=== PATIENT | female | born 1970 | race Caucasian/White ===

== ENCOUNTER 2018-07-24 09:27 | Emergency (ER) | payer MEDICAID, OTHER ==
[2018-07-24 09:39] VITALS: RESP 18
[2018-07-24] MEDS ORDERED: Sodium Chloride 0.9% 1,000 ML IV ONE (10:07)
[2018-07-24] MEDS ORDERED: Iohexol 240 (50 ml) PO STA (10:07)
[2018-07-24 10:26] LABS: BASO # 0.1 K/uL (0.0-0.2); BASO % 1.3 % (0.0-2.0); EOS # 0.1 K/uL (0.0-0.7); HEMOGLOBIN 15.5 g/dL (11.0-16.0); LYMPH # 1.6 K/uL (1.0-4.3); LYMPH % 21.7 % (20.0-40.0); MEAN CORPUSCULAR HEMOGLOBIN 33.1 pg (27.0-31.0); MEAN CORPUSCULAR HGB CONC 34.2 g/dL (33.0-37.0); MEAN PLATELET VOLUME 9.4 fL (7.2-11.7); MONO # 0.7 K/uL (0.0-0.8); MONO % 8.7 % (0.0-10.0); NEUT % 66.3 % (50.0-75.0); RBC 4.67 Mil/uL (3.80-5.20); RED CELL DISTRIBUTION WIDTH 13.1 % (11.5-14.5); WHITE BLOOD COUNT 7.6 K/uL (4.8-10.8)
[2018-07-24] MEDS ORDERED: Iohexol 240 (50 ml) ONE (10:30)
[2018-07-24] MEDS ORDERED: Morphine 4 MG/ML VIAL ONE ×2 (10:30→12:14)
[2018-07-24 10:33] LABS: HCG,QUALITATIVE URINE NEGATIVE (NEGATIVE)
[2018-07-24 10:38] LABS: SQUAMOUS EPITHIAL 3 /hpf (0-5); URINE BACTERIA RARE (<OCC); URINE BILIRUBIN NEGATIVE (NEGATIVE); URINE BLOOD NEGATIVE (NEGATIVE); URINE CLARITY Clear (Clear); URINE COLOR Yellow (YELLOW); URINE GLUCOSE (UA) NORMAL (Normal); URINE LEUKOCYTE ESTERASE NEG Leu/uL (Negative); URINE PROTEIN NEGATIVE (NEGATIVE); URINE UROBILINOGEN NORMAL mg/dL (0.2-1.0)
[2018-07-24 10:51] LABS: ALB/GLOB RATIO 1.6 (1.0-2.1); ALBUMIN 4.6 g/dL (3.5-5.0); AMYLASE 69 U/L (30-110); BLOOD UREA NITROGEN 14 mg/dL (7-17); CALCIUM 9.1 mg/dl (8.6-10.4); GFR NON-AFRICAN AMERICAN > 60; LIPASE 202 U/L (23-300)
[2018-07-24 10:53] LABS: ALT/SGPT 18 U/L (9-52); AST/SGOT 23 U/L (14-36)
[2018-07-24] MEDS ORDERED: Iohexol 300 100 ML IJ ONE (11:03)
--- NOTE | 2018-07-24 11:10 | C.PDOC ---
History Of Present Illness 47 years old female with Hx of gastric bypass and hernia repair, presents to ED for complaints of abdominal distention and pain that began 5 days ago. Patient states pain worsened today which prompted the ED visit. Denies nausea, vomiting, diarrhea, bloody stools, dysuria, or any other complaints. Patient reports similar symptoms 3 years ago and "it was something that had to do with the pancreas." Patient reports she drinks beer but denies any drug use. Patient also reports she took Tylenol for pain with no relief. Time Seen by Provider: 07/24/18 09:51 Chief Complaint (Nursing): Abdominal Pain History Per: Patient History/Exam Limitations: no limitations Onset/Duration Of Symptoms: Hrs Current Symptoms Are (Timing): Still Present Location Of Pain/Discomfort: Diffuse Radiation Of Pain To:: None Quality Of Discomfort: "Pain" Associated Symptoms: denies: Fever, Chills, Nausea, Vomiting, Diarrhea Exacerbating Factors: None Alleviating Factors: None Last Bowel Movement: Today Recent travel outside of the [place]: No Abnormal Vaginal Bleeding: No Last Menstral Period: Menopause Past Medical History Reviewed: Historical Data, Nursing Documentation, Vital Signs Vital Signs: Last Vital Signs Temp 98.3 F 07/24/18 09:36 Pulse 71 07/24/18 09:36 Resp 18 07/24/18 09:36 BP 127/81 07/24/18 10:31 Pulse Ox 99 07/24/18 09:36 - Medical History PMH: Anemia Surgical History: Cholecystectomy - [facility] PERCUTANEOUS ABDOMINAL DRAINAGE (03/24/13) Family History: States: No Known Family Hx - Social History Hx Tobacco Use: No Hx Alcohol Use: Yes Hx Substance Use: No - Immunization History Hx Tetanus Toxoid Vaccination: No Hx Influenza Vaccination: No Hx Pneumococcal Vaccination: No Review Of Systems Constitutional: Negative for: Fever, Chills Gastrointestinal: Positive for: Abdominal Pain. Negative for: Nausea, Vomiting, Diarrhea, Constipation Genitourinary: Negative for: Dysuria Skin: Negative for: Rash Neurological: Negative for: Weakness, Numbness Physical Exam - Physical Exam Appears: Non-toxic, No Acute Distress, Other (Uncomfortable ) Skin: Normal Color, Warm, Dry, No Rash Head: Atraumatic, Normacephalic Eye(s): bilateral: Normal Inspection, PERRL, EOMI Oral Mucosa: Moist Neck: Normal ROM, Supple Chest: Symmetrical, No Tenderness Cardiovascular: Rhythm Regular Respiratory: Normal Breath Sounds, No Rales, No Rhonchi, No Wheezing Gastrointestinal/Abdominal: Bowel Sounds, Soft, Tenderness (Epigastric area ), No Mass, No Distention, Other (Obese ) Extremity: Bilateral: Atraumatic, Normal Color And Temperature, Normal ROM Pulses: Left Radial: Normal, Right Radial: Normal Neurological/Psych: Oriented x3, Normal Speech ED Course And Treatment - Laboratory Results Result Diagrams: 07/24/18 10:23 07/24/18 10:23 O2 Sat by Pulse Oximetry: 99 (RA) Pulse Ox Interpretation: Normal - CT Scan/US Abdomen/Pelvis CT Other Rad Studies (CT/US): Read By Radiologist, Radiology Report Reviewed CT/US Interpretation: PROCEDURE: CT Abdomen and Pelvis with oral and IV contrast. HISTORY: mid abd pain and weight loss; history of gastric bypass, cholecystectomy, hernia. COMPARISON: CT abdomen and pelvis with IV contrast performed 05/18/15. TECHNIQUE: Contiguous axial images of the abdomen and pelvis. Oral and IV contrast was administered. Coronal and Sagittal reformats generated and reviewed. Contrast dose: 100 mL Omnipaque 300 IV. Radiation dose: Total exam DLP = 1124.02 mGy-cm. This CT exam was performed using one or more of the following dose reduction techniques: Automated exposure control, adjustment of the mA and/or kV according to patient size, and/or use of iterative reconstruction technique. FINDINGS: LOWER THORAX: No visible consolidation, pleural effusion, or pneumothorax. LIVER: Unremarkable. GALLBLADDER AND BILE DUCTS: Cholecystectomy. Intrahepatic and extrahepatic biliary ductal dilatation. Common bile duct measures approximately 1.4 cm diameter. PANCREAS: Unremarkable. SPLEEN: Unremarkable. ADRENALS: Unremarkable. KIDNEYS AND URETERS: The kidneys enhance symmetrically. No hydronephrosis or obstructing renal calculus. BLADDER: The urinary bladder appears unremarkable. REPRODUCTIVE: Uterus is present. APPENDIX: The appendix appears within normal limits of caliber. No secondary signs of acute appendicitis. BOWEL: The stomach is nondistended. Postoperative changes from gastric bypass. The bowel loops appear within normal limits of caliber without evidence of intestinal obstruction. PERITONEUM: No significant free fluid. No definite free air. LYMPH NODES: Sub cm mesenteric lymph nodes, nonspecific. V ASCULATURE: No aortic aneurysm. No atherosclerotic calcification or mural plaque present. BONES: No acute osseous abnormality is detected. OTHER FINDINGS: Mesh repair of an anterior abdominal wall hernia. Soft tissue thickening and small fluid collection re-identified within the anterior abdomi nal wall measuring approximately 2.1 cm x 7.5 cm x 8.4 cm (AP by transverse by cc), similar in appearance. IMPRESSION: Mesh repair with small fluid collection re-identified similar in appearance to prior study performed 05/18/15. Cholecystectomy with persistent intrahepatic and extrahepatic biliary ductal dilatation. Additional incidental findings as above. Medical Decision Making Medical Decision Making: Impression: Abdominal plan Plan: * Morphine * IV Fluids * Toradol * Pepcid * Blood work * Urinalysis * CT Abdomen/Pelvis Progress: Labs reviewed and unremarkable. CT reviewed mesh repair with small fluid collection re-identified similar in appearance to prior study performed 05/18/15. See full report. On re-evaluation the patient was resting on stretcher without fever and normal vital signs. Discussed results with her and provided copy of labs and CT report. Advise follow up with clinic and Rx given. Disposition Counseled Patient/Family Regarding: Diagnosis, Need For Followup, Rx Given - Disposition Referrals: [facility] [Outside] [facility] [Outside] Disposition: HOME/ ROUTINE Disposition Time: 14:00 Condition: STABLE Additional Instructions: Follow up with your primary medical doctor or clinic in 2-5 days for further ev aluation. Take medications as prescribed. Return to the emergency department at any time if symptoms persist or worsen. 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 - Scribe Statement The provider has reviewed the documentation as recorded by the [facility] All medical record entries made by the Home were at my direction and personally dictated by me. I have reviewed the chart and agree that the record accurately reflects my personal performance of the history, physical exam, medical decision making, and the department course for this patient. I have also personally directed, reviewed, and agree with the discharge instructions and disposition.
--- NOTE | 2018-07-24 13:26 | CT ---
PROCEDURE: CT Abdomen and Pelvis with oral and IV contrast. HISTORY: mid abd pain and weight loss; history of gastric bypass, cholecystectomy, hernia. COMPARISON: CT abdomen and pelvis with IV contrast performed 05/18/15 TECHNIQUE: Contiguous axial images of the abdomen and pelvis. Oral and IV contrast was administered. Coronal and Sagittal reformats generated and reviewed. Contrast dose: 100 mL Omnipaque 300 IV Radiation dose: Total exam DLP = 1124.02 mGy-cm. This CT exam was performed using one or more of the following dose reduction techniques: Automated exposure control, adjustment of the mA and/or kV according to patient size, and/or use of iterative reconstruction technique. FINDINGS: LOWER THORAX: No visible consolidation, pleural effusion, or pneumothorax. LIVER: Unremarkable. GALLBLADDER AND BILE DUCTS: Cholecystectomy. Intrahepatic and extrahepatic biliary ductal dilatation. Common bile duct measures approximately 1.4 cm diameter. PANCREAS: Unremarkable. SPLEEN: Unremarkable. ADRENALS: Unremarkable. KIDNEYS AND URETERS: The kidneys enhance symmetrically. No hydronephrosis or obstructing renal calculus. BLADDER: The urinary bladder appears unremarkable. REPRODUCTIVE: Uterus is present. APPENDIX: The appendix appears within normal limits of caliber. No secondary signs of acute appendicitis. BOWEL: The stomach is nondistended. Postoperative changes from gastric bypass. The bowel loops appear within normal limits of caliber without evidence of intestinal obstruction. PERITONEUM: No significant free fluid. No definite free air. LYMPH NODES: Sub cm mesenteric lymph nodes, nonspecific. VASCULATURE: No aortic aneurysm. No atherosclerotic calcification or mural plaque present. BONES: No acute osseous abnormality is detected. OTHER FINDINGS: Mesh repair of an anterior abdominal wall hernia. Soft tissue thickening and small fluid collection re-identified within the anterior abdominal wall measuring approximately 2.1 cm x 7.5 cm x 8.4 cm (AP by transverse by cc), similar in appearance. IMPRESSION: Mesh repair with small fluid collection re-identified similar in appearance to prior study performed 05/18/15. Cholecystectomy with persistent intrahepatic and extrahepatic biliary ductal dilatation. Additional incidental findings as above.
[2018-07-24 14:15] VITALS: BP 124/83; PULSE 68; TEMP 97.6
[2018-07-24 16:54] VITALS: O2SAT 99
== END 2018-07-24 14:30 | disposition home or self-care (01) ==
LOC: C.ER 09:27
DX: R10.9 Unspecified abdominal pain (principal)
CPT/HCPCS: 74177; 80053; 81001; 82150; 83690; 84703; 85025; 96361; 96374; 96375; 96376; 99284; J1885; J2270; J7030; Q9966; Q9967